=== PATIENT | female | born 1970 | race African-American/Black ===

== ENCOUNTER → 2017-07-07 | Day surgery (SDC) | payer OTHER ==
[~2017-07-07] MED LIST: APREPITANT 40 MG CAP ONE; BUPIVACAINE HCL PF 0.5% 10 ML VIAL ONE; KETOROLAC TROMETHAMINE 30 MG/ML (IVP) VIAL IV PUSH ONE; LACTATED RINGER'S 1000 ML INJ 1,000 ML ONE; MIDAZOLAM HCL 2 MG/2 ML VIAL ONE; ONDANSETRON HCL 4 MG/2 ML VIAL IV PUSH ONE; PROPOFOL 100 MG/10 ML INJ IV ONE; ceFAZolin 2 GM PREMIX 50 ML ONE; oxyCODONE/ACETAMINOPHEN 5 MG/325 MG TAB ONE
--- NOTE | 2017-07-07 09:41 | MP ---
cc: Lillie Fay MD DATE OF OPERATION: 07/07/2017 PREOPERATIVE DIAGNOSIS: Right breast cancer with positive lumpectomy margins. POSTOPERATIVE DIAGNOSIS: Right breast cancer with positive lumpectomy margins. PROCEDURE PERFORMED: Reexcision of right breast medial, lateral and inferior lumpectomy margins. SURGEON: Lillie Fay MD ANESTHESIA: General via LMA device. INDICATIONS: The patient is a 46-year-old female with a newly diagnosed clinical stage II right breast cancer at 5 o'clock 12 cm from the nipple. She underwent recent lumpectomy and sentinel lymph node biopsy and had a T2 lesion involving the lateral and inferior margins with a close medial margin. She now presents for reexcision of these margins. FINDINGS AT THE TIME OF SURGERY: The lumpectomy cavity was easily identified with a noninfected seroma present. PROCEDURE NOTE: After informed consent was obtained and site verification was performed, the patient was brought to the major operating room where she underwent general anesthesia via an LMA device. She was given a single dose of IV Ancef and sequential compression hose were placed. The right breast was prepped and draped in a sterile fashion. The previous inframammary incision was anesthetized with 0.5% Marcaine plain and incised sharply. The lumpectomy cavity was identified and there was evidence of an oncoplastic reconstruction with tissue between the anterior margin and the pectoralis muscle. The medial and lateral margins of the cavity were sharply demarcated and reexcised with a stitch on each of the new margins and these were sent separately as permanent specimens. The inferior margin was also sharply demarcated and reexcised with a stitch on the new margin. Hemostasis was easily obtained with electrocautery and the remaining tissue between the skin and the muscle was secured to the chest wall with interrupted Vicryl sutures. The subcutaneous tissue was reapproximated with an interrupted 3-0 Vicryl and the skin was closed using a 4-0 Monocryl subcuticular suture. Steri-Strips and sterile dressings were applied. The patient tolerated the procedure well with minimal blood loss, and she was extubated in the operating room and brought to the recovery room in good condition. All sponge and needle counts were correct at the conclusion of the case. MD KARY Greer/NAYELY , 09:25 AM , 09:39 AM
== END | disposition home or self-care (01) ==
LOC: ESDC 06:15
PROVIDERS: ATTEND Surgery
DX: C50.911 Malignant neoplasm of unspecified site of right female breast (principal)
CPT/HCPCS: 00400; 19301; 88307; J0690; J1885; J2250; J2405; J3010; J7120; J8501